=== PATIENT | female | born 1970 | race Two or more races ===

== ENCOUNTER 2023-08-05 20:16 | Emergency (ER) | payer MEDICAID ==
[~2023-08-05] VITALS: Ht 162.6 cm; Wt 71.0 kg
[~2023-08-05 20:16] MED LIST: AZIT-43 PO; PRED20TA2 PO
[2023-08-05 21:05] VITALS: BP 111/63; PULSE 75; RESP 18; TEMP 98.9; O2SAT 98
[2023-08-05 22:12] LABS: COVID19 ANTIGEN SOFIA FIA NEGATIVE (NEGATIVE)
[2023-08-05 22:13] LABS: Rapid Influenza A Positive (Negative); Rapid Influenza B Negative (Negative)
== END 2023-08-05 23:00 | disposition home or self-care (01) ==
LOC: ER 20:16
DX: J10.1 Influenza due to other identified influenza virus with other respiratory manifestations (principal); R05.3 Chronic cough; Z20.822 Contact with and (suspected) exposure to COVID-19
CPT/HCPCS: 36415; 71045; 87426; 87804